=== PATIENT | female | born 1995 | race Caucasian/White ===

== ENCOUNTER 2021-06-17 05:37 | Inpatient (IN) | payer BC, OTHER ==
[~2021-06-17] VITALS: Ht 160 cm; Wt 72.1 kg
[2021-06-17] MEDS ORDERED: SERTRALINE HCL50 MG PO (06:25)
[2021-06-17] MEDS ORDERED: TRANDATE 100 M100 MG PO (06:26)
[2021-06-17] MEDS ORDERED: ASPIRIN81 MG PO (06:26)
[2021-06-17 08:00] LABS: HEMOGLOBIN 11.3 gm/dl (12.3-15.3); RED BLOOD COUNT 3.64 M/UL (4.00-5.10); WHITE BLOOD COUNT 7.3 K/UL (4.5-11.0)
[2021-06-17 08:02] LABS: BUN/CREATININE RATIO 17 (0-10)
[2021-06-17] MEDS ORDERED: HYDROCODON-ACE1 EAC4 PO (08:02)
[2021-06-17] MEDS ORDERED: DOCUSATE SODIU100 MG PO (08:02)
[2021-06-17] MEDS ORDERED: IBUPROFEN600 MG PO (08:02)
== END 2021-06-17 18:29 | disposition other institution (70) | DRG 788 ==
LOC: UNDOADMIN 05:37 → OB 05:37
PROVIDERS: ADMIT Obstetrics & Gynecology
PROC: 4A1HXCZ Monitoring of Products of Conception, Cardiac Rate, External Approach (ICD-10-PCS; 2021-06-17)
PROC: 10D00Z1 Extraction of Products of Conception, Low, Open Approach (ICD-10-PCS; principal; 2021-06-17 07:30)
DX: O34.211 Maternal care for low transverse scar from previous cesarean delivery (principal); O13.4 Gestational [pregnancy-induced] hypertension without significant proteinuria, complicating childbirth; Z3A.37 37 weeks gestation of pregnancy; Z20.822 Contact with and (suspected) exposure to COVID-19; Z37.0 Single live birth; O99.344 Other mental disorders complicating childbirth; F32.A Depression, unspecified; Z82.49 Family history of ischemic heart disease and other diseases of the circulatory system; Z80.1 Family history of malignant neoplasm of trachea, bronchus and lung
CPT/HCPCS: 80053; 81001; 82800; 85025; C9113; J0690; J1885; J2274; J2370; J2405; J2590; J3010; J7120